=== PATIENT | male | born 1955 | race Caucasian/White ===

== ENCOUNTER 2023-12-17 17:34 | Emergency (ER) | payer MEDICARE, OTHER ==
[2023-12-17] MEDS ORDERED: Boostrix 0.5 ML (Tdap) VIAL (>/=7 yrs of age) ONE (17:56)
== END 2023-12-17 18:10 | disposition home or self-care (01) ==
LOC: BURERS 17:34
DX: S00.83XA Contusion of other part of head, initial encounter (principal); W49.9XXA Exposure to other inanimate mechanical forces, initial encounter
CPT/HCPCS: 90471; 90715

== ENCOUNTER 2024-11-28 13:22 | Emergency (ER) | payer MEDICARE ==
[2024-11-28] MEDS ORDERED: Fluorescein Opthalmic Strip ONE (13:50)
[2024-11-28] MEDS ORDERED: Tetracaine 0.5% PF 4 ML BOT ONE (13:50)
== END 2024-11-28 14:55 | disposition home or self-care (01) ==
LOC: BURERS 13:22
DX: T15.02XA Foreign body in cornea, left eye, initial encounter (principal)
CPT/HCPCS: 99283